=== PATIENT | female | born 1965 | race African-American/Black ===

== ENCOUNTER 2022-10-29 22:08 | Inpatient (IN) | payer MEDICAID, OTHER ==
[~2022-10-29] VITALS: Ht 162.6 cm; Wt 94.9 kg
[2022-10-29 23:13] LABS: BASOPHILS % (AUTO) 0.9 % (0.0-2.0); EOSINOPHILS % (AUTO) 2.9 % (1.0-6.0); HEMATOCRIT 38.8 % (36-46); HEMOGLOBIN 13.2 g/dL (12.0-16.0); LYMPHOCYTES # (AUTO) 4.7 K/uL (1.0-4.8); MEAN CORPUSCULAR HEMOGLOBIN 31.2 pg (26.0-34.0); MEAN CORPUSCULAR HGB CONC 33.9 G/dL (31.0-37.0); MEAN CORPUSCULAR VOLUME 92 fL (80-100); MONOCYTES # (AUTO) 0.5 K/uL (0.1-1.0); MONOCYTES % (AUTO) 6.6 % (2.0-9.0); NEUTROPHILS # (AUTO) 1.9 K/uL (1.8-7.7); NEUTROPHILS % (AUTO) 25.6 % (40.0-70.0); PLATELET COUNT (AUTO) 224 K/uL (150-450); RED BLOOD CELL COUNT(AUTO) 4.21 MIL/uL (4.00-5.20); RED CELL DISTRIBUTION WIDTH 16.1 % (11.5-14.5)
[2022-10-29 23:21] LABS: ANION GAP 14 mmol/L (8-16); CALCIUM, TOTAL 8.5 mg/dL (8.8-10.5); CARBON DIOXIDE 25 mmol/L (22-29); CHLORIDE 105 mmol/L (98-107); CREATININE 0.79 mg/dL (0.60-1.30); GLOMERULAR FILTR. RATE CALC > 60 mL/min (>60); GLUCOSE,RANDOM 103 mg/dL (70-110); POTASSIUM 3.9 mmol/L (3.5-5.1); SODIUM SERUM 144 mmol/L (136-145)
[2022-10-29] MEDS ORDERED: FAMO20 PO (23:25)
[2022-10-29] MEDS ORDERED: CETI-450 PO (23:25)
[2022-10-29] MEDS ORDERED: BUSP10TA23 PO (23:25)
[2022-10-29] MEDS ORDERED: FLUT1BLS15 IH (23:25)
[2022-10-29] MEDS ORDERED: CALC-1238 PO (23:25)
[2022-10-29] MEDS ORDERED: LURA20TA PO (23:25)
[2022-10-29] MEDS ORDERED: TRAZ-257 PO (23:25)
[2022-10-29 23:27] LABS: ALANINE AMINOTRANSFERASE 19 U/L (12-78); ALBUMIN 3.3 g/dL (3.4-5.0); ALKALINE PHOSPHATASE 76 U/L (46-116); ASPARTATE AMINOTRANSFERASE 31 U/L (15-37); BILIRUBIN,TOTAL 0.2 mg/dL (0.1-1.0); TOTAL PROTEIN, SERUM 6.9 g/dL (6.4-8.2)
[2022-10-29] MEDS ORDERED: ZOLPIDEM TARTRATE 10 MG TABLET PO PRN (23:30)
[2022-10-29] MEDS ORDERED: HALOPERIDOL 5 MG TABLET PO PRN (23:30)
[2022-10-29] MEDS ORDERED: LORazepam 2 MG TABLET PO PRN (23:30)
[2022-10-30 05:25] LABS: COVID AG,FIA SOURCE NASAL SWAB
[2022-10-30] MEDS ORDERED: MAGNESIUM SULFATE 2 GM, MVI, ADULT NO.1 WITH VIT K 10 ML, THIAMINE 100 MG, FOLIC ACID 1... IV ONE ×5 (09:00)
[2022-10-30] MEDS ORDERED: LORazepam 2 MG/ML VIAL IVP ONE (09:00)
[2022-10-30] MEDS ORDERED: HALOPERIDOL 5 MG TABLET PO PRN (21:15)
[2022-10-30] MEDS ORDERED: ZOLPIDEM TARTRATE 10 MG TABLET PO PRN (21:15)
[2022-10-30] MEDS: LORazepam 2 MG TABLET PO PRN (21:28)
[2022-10-30 22:14] LABS: APPEARANCE,URINE CLEAR (CLEAR); BILIRUBIN,URINE NEGATIVE (NEGATIVE); GLUCOSE, URINE (UA) NEGATIVE (NEGATIVE); KETONES,URINE NEGATIVE (NEGATIVE); LEUKOCYTE ESTERASE ,URINE NEGATIVE (NEGATIVE); NITRATE,URINE NEGATIVE (NEGATIVE); OCCULT BLOOD,URINE NEGATIVE (NEGATIVE); PH,URINE 7.5 (5.0-8.0); PROTEIN,URINE NEGATIVE (NEGATIVE); SPECIFIC GRAVITIY, URINE 1.008 (1.003-1.030); UROBILINOGEN,URINE <=1.0 mg/dL (<=1.0)
[2022-10-30 22:21] LABS: AMPHET/METH SCREEN,URINE NEGATIVE (NEGATIVE); BARBITURATE SCREEN, URINE NEGATIVE (NEGATIVE); BENZODIAZEPINES SCREEN,URINE NEGATIVE (NEGATIVE); CANNABINOID SCREEN,URINE NEGATIVE (NEGATIVE); COCAINE SCREEN,URINE NEGATIVE (NEGATIVE); METHADONE SCREEN, URINE NEGATIVE (NEGATIVE); OPIATE SCREEN,URINE NEGATIVE (NEGATIVE); PHENCYCLIDINE SCREEN,URINE NEGATIVE (NEGATIVE)
[2022-10-30 22:29] VITALS: BP 148/80
[2022-10-30 22:51] LABS: BACTERIA,URINE None Seen /HPF (None Seen); RBC,URINE None Seen /HPF (0-2); WBC,URINE 0-2 /HPF (0-5)
[2022-10-31] MEDS ORDERED: FAMOTIDINE 20 MG TABLET PO PRN (05:30)
[2022-10-31] MEDS: LORazepam 2 MG TABLET PO PRN ×2 (06:53→11:17)
[2022-10-31 08:33] VITALS: BP 119/71
[2022-10-31] MEDS: FLUTICASONE PROPIONATE 50 MCG/SPRAY 16 GM NASAL SPRAY NASAL SCH (09:00)
[2022-10-31] MEDS ORDERED: FLUTICASONE FUROATE 200 MCG/INH INHALER [14] IH SCH (09:00)
[2022-10-31] MEDS: UMECLIDINIUM IH SCH (10:25)
[2022-10-31] MEDS: IBUPROFEN 800 MG TABLET PO SCH ×3 (10:25→17:56)
[2022-10-31] MEDS: VILANTEROL IH SCH (10:25)
[2022-10-31] MEDS: CALCIUM [CALCIUM CARB 1250MG] 500 MG TABLET PO SCH (10:25)
[2022-10-31] MEDS: FLUTICASONE FUROATE IH SCH (10:25)
[2022-10-31] MEDS: CETIRIZINE HCL 10 MG TABLET PO SCH (10:26)
[2022-10-31] MEDS ORDERED: FLUT12HF3 PO (12:18)
[2022-10-31] MEDS ORDERED: CALC-462 PO (12:18)
[2022-10-31] MEDS ORDERED: LURA40TA4 PO (12:18)
[2022-10-31] MEDS: BusPIRone HCL 10 MG TABLET PO SCH (17:56)
[2022-10-31] MEDS ORDERED: LURASIDONE HCL 40 MG TABLET PO ONE (18:00)
[2022-10-31 20:04] VITALS: BP 149/62
[2022-10-31] MEDS: TraZODone HCL 50 MG TABLET PO SCH (20:11)
[2022-10-31] MEDS ORDERED: FLUTICASONE/VILANTEROL 200-25 MCG/INH INHALER [14] IH SCH (21:00)
[2022-10-31] MEDS ORDERED: LURASIDONE HCL 40 MG TABLET PO SCH (21:00)
[2022-11-01 08:00] VITALS: BP 108/55
[2022-11-01] MEDS: IBUPROFEN 800 MG TABLET PO SCH ×3 (08:58→17:00)
[2022-11-01] MEDS: BusPIRone HCL 10 MG TABLET PO SCH ×2 (08:58→17:26)
[2022-11-01] MEDS: FLUTICASONE PROPIONATE 50 MCG/SPRAY 16 GM NASAL SPRAY NASAL SCH (09:00)
[2022-11-01] MEDS: CALCIUM [CALCIUM CARB 1250MG] 500 MG TABLET PO SCH (09:00)
[2022-11-01] MEDS: CETIRIZINE HCL 10 MG TABLET PO SCH (09:01)
[2022-11-01] MEDS: VILANTEROL IH SCH (11:15)
[2022-11-01] MEDS: FLUTICASONE FUROATE IH SCH (11:15)
[2022-11-01] MEDS: UMECLIDINIUM IH SCH (11:15)
[2022-11-01] MEDS ORDERED: LURASIDONE HCL 40 MG TABLET PO SCH (17:30)
[2022-11-01 20:33] VITALS: BP 149/84
[2022-11-01] MEDS: TraZODone HCL 50 MG TABLET PO SCH (20:40)
[2022-11-02] MEDS: VILANTEROL IH SCH (08:29)
[2022-11-02] MEDS: BusPIRone HCL 10 MG TABLET PO SCH (08:29)
[2022-11-02] MEDS: FLUTICASONE FUROATE IH SCH (08:29)
[2022-11-02] MEDS: CALCIUM [CALCIUM CARB 1250MG] 500 MG TABLET PO SCH (08:29)
[2022-11-02] MEDS: UMECLIDINIUM IH SCH (08:29)
[2022-11-02] MEDS: FLUTICASONE PROPIONATE 50 MCG/SPRAY 16 GM NASAL SPRAY NASAL SCH (08:30)
[2022-11-02] MEDS: IBUPROFEN 800 MG TABLET PO SCH ×2 (08:30→11:29)
[2022-11-02] MEDS: CETIRIZINE HCL 10 MG TABLET PO SCH (08:30)
[2022-11-02 09:16] VITALS: BP 123/76
[2022-11-02] MEDS ORDERED: TRAZ-252 PO (09:54)
[2022-11-02] MEDS ORDERED: BUSP10TA23 PO (09:54)
[2022-11-02] MEDS ORDERED: LURA40TA4 PO (09:54)
[2022-11-02] MEDS ORDERED: FLUT16SP NASAL (10:36)
[2022-11-02] MEDS ORDERED: IBUP-1493 PO (10:36)
== END 2022-11-02 13:18 | disposition home or self-care (01) | DRG 750 ==
LOC: EMS 23:43 → 6N 10-30 14:06 → UNDOADMIN 10-30 14:06 → 3EI 10-30 17:24
PROVIDERS: ADMIT Psychiatry & Neurology Psychiatry; ATTEND Psychiatry & Neurology Psychiatry
DX: F25.9 Schizoaffective disorder, unspecified (principal); R45.851 Suicidal ideations; K70.30 Alcoholic cirrhosis of liver without ascites; F10.139 Alcohol abuse with withdrawal, unspecified; J45.909 Unspecified asthma, uncomplicated; Z20.822 Contact with and (suspected) exposure to COVID-19; F43.10 Post-traumatic stress disorder, unspecified; Z79.899 Other long term (current) drug therapy
CPT/HCPCS: 71045; 80053; 80307; 81001; 83690; 85025; 93005; 99285; G0480; J2060; J3411; J3475; J3490; J7030; Q9967; 36415-L1; 36415-TC

== ENCOUNTER 2023-03-15 21:11 | Emergency (ER) | payer MEDICAID, OTHER ==
[~2023-03-15] VITALS: Ht 162.6 cm; Wt 95.9 kg
[~2023-03-15 21:11] MED LIST: BUSP10TA23 PO; CALC-462 PO; CETI-450 PO; FLUT16SP NASAL; FLUT1BLS15 IH; IBUP-1493 PO; LURA40TA4 PO; TRAZ-252 PO
[2023-03-15 21:46] VITALS: TEMP 98.4
[2023-03-15] MEDS ORDERED: LURASIDONE HCL 20 MG TABLET PO ONE (22:00)
[2023-03-15] MEDS ORDERED: BusPIRone HCL 10 MG TABLET PO ONE (22:00)
[2023-03-15] MEDS ORDERED: LORazepam 2 MG/ML VIAL IM ONE (22:15)
[2023-03-15 22:47] LABS: BASOPHILS % (AUTO) 1.5 % (0.0-2.0); HEMATOCRIT 41.1 % (36-46); HEMOGLOBIN 13.8 g/dL (12.0-16.0); LYMPHOCYTES # (AUTO) 3.8 K/uL (1.0-4.8); LYMPHOCYTES % (AUTO) 59.4 % (22.0-44.0); MEAN CORPUSCULAR HEMOGLOBIN 32.3 pg (26.0-34.0); MEAN CORPUSCULAR HGB CONC 33.5 G/dL (31.0-37.0); MEAN CORPUSCULAR VOLUME 96 fL (80-100); MONOCYTES # (AUTO) 0.5 K/uL (0.1-1.0); MONOCYTES % (AUTO) 7.3 % (2.0-9.0); NEUTROPHILS # (AUTO) 1.6 K/uL (1.8-7.7); NEUTROPHILS % (AUTO) 25.8 % (40.0-70.0); PLATELET COUNT (AUTO) 234 K/uL (150-450); RED BLOOD CELL COUNT(AUTO) 4.27 MIL/uL (4.00-5.20); RED CELL DISTRIBUTION WIDTH 15.7 % (11.5-14.5); WHITE BLOOD COUNT (AUTO) 6.4 K/uL (4.5-11.0)
[2023-03-15 22:56] LABS: ANION GAP 10 mmol/L (8-16); CALCIUM, TOTAL 7.9 mg/dL (8.8-10.5); CARBON DIOXIDE 27 mmol/L (22-29); CHLORIDE 107 mmol/L (98-107); CREATININE 0.74 mg/dL (0.60-1.30); GLOMERULAR FILTR. RATE CALC > 60 mL/min (>60); GLUCOSE,RANDOM 95 mg/dL (70-110); POTASSIUM 3.9 mmol/L (3.5-5.1); SODIUM SERUM 144 mmol/L (136-145); UREA NITROGEN, BLOOD 7 mg/dL (7-18)
[2023-03-15 23:02] LABS: ALANINE AMINOTRANSFERASE 23 U/L (12-78); ALBUMIN 2.8 g/dL (3.4-5.0); ALKALINE PHOSPHATASE 76 U/L (46-116); ASPARTATE AMINOTRANSFERASE 30 U/L (15-37); BILIRUBIN,TOTAL 0.2 mg/dL (0.1-1.0); LIPASE 66 U/L (16-77); TOTAL PROTEIN, SERUM 6.1 g/dL (6.4-8.2)
[2023-03-15 23:20] LABS: ALCOHOL, BLOOD (SERUM) 248 mg/dL (0-10)
[2023-03-16 01:42] VITALS: BP 113/76; PULSE 61; RESP 14
== END 2023-03-16 01:44 | disposition home or self-care (01) ==
LOC: EMS 21:13
DX: F25.9 Schizoaffective disorder, unspecified (principal); R45.851 Suicidal ideations; F10.129 Alcohol abuse with intoxication, unspecified; J45.909 Unspecified asthma, uncomplicated; F31.9 Bipolar disorder, unspecified; Z87.891 Personal history of nicotine dependence; Z98.51 Tubal ligation status; Z88.0 Allergy status to penicillin
CPT/HCPCS: 99284; 80053; 83690; 85025; 36415; 96372; G0480; J2060; Q9967

== ENCOUNTER 2023-09-19 17:40 | Inpatient (IN) | payer MEDICAID, OTHER ==
[~2023-09-19] VITALS: Ht 162.6 cm; Wt 86.6 kg
[2023-09-19 19:01] LABS: BASOPHILS % (AUTO) 1.1 % (0.0-2.0); EOSINOPHILS % (AUTO) 4.1 % (1.0-6.0); HEMATOCRIT 46.9 % (36-46); HEMOGLOBIN 16.3 g/dL (12.0-16.0); LYMPHOCYTES # (AUTO) 6.3 K/uL (1.0-4.8); LYMPHOCYTES % (AUTO) 59.6 % (22.0-44.0); MEAN CORPUSCULAR HEMOGLOBIN 33.5 pg (26.0-34.0); MEAN CORPUSCULAR HGB CONC 34.7 G/dL (31.0-37.0); MEAN CORPUSCULAR VOLUME 97 fL (80-100); MONOCYTES # (AUTO) 0.6 K/uL (0.1-1.0); MONOCYTES % (AUTO) 5.4 % (2.0-9.0); NEUTROPHILS # (AUTO) 3.1 K/uL (1.8-7.7); NEUTROPHILS % (AUTO) 29.8 % (40.0-70.0); PLATELET COUNT (AUTO) 232 K/uL (150-450); RED BLOOD CELL COUNT(AUTO) 4.86 MIL/uL (4.00-5.20); RED CELL DISTRIBUTION WIDTH 16.3 % (11.5-14.5); WHITE BLOOD COUNT (AUTO) 10.5 K/uL (4.5-11.0)
[2023-09-19 19:19] LABS: ALCOHOL, BLOOD (SERUM) 298 mg/dL (0-10)
[2023-09-19 19:25] LABS: ANION GAP 17 mmol/L (8-16); CALCIUM, TOTAL 8.6 mg/dL (8.8-10.5); CARBON DIOXIDE 21 mmol/L (22-29); CHLORIDE 99 mmol/L (98-107); CREATININE 0.75 mg/dL (0.60-1.30); GLOMERULAR FILTR. RATE CALC > 60 mL/min (>60); GLUCOSE,RANDOM 103 mg/dL (70-110); POTASSIUM 3.7 mmol/L (3.5-5.1); SODIUM SERUM 137 mmol/L (136-145); UREA NITROGEN, BLOOD 8 mg/dL (7-18)
[2023-09-19 19:29] LABS: ALANINE AMINOTRANSFERASE 21 U/L (12-78); ALBUMIN 3.6 g/dL (3.4-5.0); ALKALINE PHOSPHATASE 90 U/L (46-116); ASPARTATE AMINOTRANSFERASE 32 U/L (15-37); BILIRUBIN,TOTAL 0.2 mg/dL (0.1-1.0); TOTAL PROTEIN, SERUM 8.2 g/dL (6.4-8.2)
[2023-09-19 19:42] LABS: COVID AG,FIA SOURCE NASAL SWAB
[2023-09-19 20:08] LABS: SARS-COV2 (COVID) ANTIGEN,FIA Negative (Negative)
[2023-09-19] MEDS: ZOLPIDEM TARTRATE 10 MG TABLET PO PRN (23:20)
[2023-09-19] MEDS: HALOPERIDOL 5 MG TABLET PO PRN (23:20)
[2023-09-19] MEDS: LORazepam 2 MG TABLET PO PRN (23:20)
[2023-09-20] VITALS (8 sets, daily range): BP systolic 124–144; BP diastolic 75–92; PULSE 76–116; RESP 17–18; TEMP 97.2–98.7; O2SAT 95–98
[2023-09-20] MEDS ORDERED: PNEUMOCOCCAL VACCINE POLYVALENT 0.5 ML SYRINGE [PPSV23] IM. ONE (04:45)
[2023-09-20] MEDS ORDERED: CloNIDine HCL 0.1 MG TABLET PO PRN (07:00)
[2023-09-20] MEDS ORDERED: GuaiFENesin/D-METHORPHAN [SUGAR-FREE] 200-20MG/10 ML SYRUP UDCUP PO PRN (07:00)
[2023-09-20] MEDS ORDERED: ALBUTEROL SULFATE HFA 90 MCG/PUFF 8 GM INHALER IH PRN (07:00)
[2023-09-20] MEDS ORDERED: NICOTINE 14 MG/24 HOUR PATCH TD PRN (07:00)
[2023-09-20] MEDS ORDERED: PETROLATUM,WHITE 28 GM JELLY TP PRN (07:00)
[2023-09-20] MEDS ORDERED: ONDANSETRON HCL 4 MG TABLET PO PRN (07:00)
[2023-09-20] MEDS ORDERED: MAGNESIUM HYDROXIDE SUSPENSION 30 ML UDCUP PO PRN (07:00)
[2023-09-20] MEDS ORDERED: IBUPROFEN 400 MG TABLET PO PRN (07:00)
[2023-09-20] MEDS ORDERED: LOPERAMIDE HCL 2 MG CAPSULE PO PRN (07:00)
[2023-09-20] MEDS ORDERED: MAG HYDROX/ALUMINUM HYD/SIMETH ES 30 ML SUSPENSION UDCUP PO PRN (07:00)
[2023-09-20] MEDS: FLUTICASONE/VILANTEROL 200-25 MCG/INH INHALER [14] IH SCH (09:32)
[2023-09-20 10:45] LABS: APPEARANCE,URINE HAZY (CLEAR); BILIRUBIN,URINE NEGATIVE (NEGATIVE); COLOR,URINE LIGHT YELLOW (YELLOW); GLUCOSE, URINE (UA) NEGATIVE (NEGATIVE); KETONES,URINE NEGATIVE (NEGATIVE); LEUKOCYTE ESTERASE ,URINE LARGE (NEGATIVE); NITRATE,URINE NEGATIVE (NEGATIVE); OCCULT BLOOD,URINE NEGATIVE (NEGATIVE); PROTEIN,URINE NEGATIVE (NEGATIVE); UROBILINOGEN,URINE <=1.0 mg/dL (<=1.0)
[2023-09-20] MEDS ORDERED: LORazepam 2 MG TABLET PO PRN (10:45)
[2023-09-20 10:53] LABS: ALCOHOL, URINE DRUG SCREEN POSITIVE (NEGATIVE); AMPHET/METH SCREEN,URINE NEGATIVE (NEGATIVE); BARBITURATE SCREEN, URINE NEGATIVE (NEGATIVE); BENZODIAZEPINES SCREEN,URINE NEGATIVE (NEGATIVE); CANNABINOID SCREEN,URINE NEGATIVE (NEGATIVE); COCAINE SCREEN,URINE NEGATIVE (NEGATIVE); METHADONE SCREEN, URINE NEGATIVE (NEGATIVE); OPIATE SCREEN,URINE NEGATIVE (NEGATIVE); PHENCYCLIDINE SCREEN,URINE NEGATIVE (NEGATIVE)
[2023-09-20 11:06] LABS: BACTERIA,URINE Few /HPF (None Seen); RBC,URINE None Seen /HPF (0-2); SQUAMOUS EPITHELIAL CELL,UR Few /LPF (None Seen)
[2023-09-20] MEDS: FOLIC ACID 1 MG TABLET PO SCH (12:55)
[2023-09-20] MEDS: BusPIRone HCL 10 MG TABLET PO SCH (12:55)
[2023-09-20] MEDS: THIAMINE 100 MG TABLET PO SCH (12:55)
[2023-09-20] MEDS: MULTIVITAMINS WITH MINERALS, THERAPEUTIC TABLET PO SCH (12:55)
[2023-09-20] MEDS: CYANOCOBALAMIN 1,000 MCG/ML VIAL IM ONE (13:25)
[2023-09-20] MEDS: CETIRIZINE HCL 10 MG TABLET PO SCH (15:27)
[2023-09-20] MEDS: CALCIUM OYSTER SHELL 250 MG-VIT D3 125 UNITS[3.125MCG] TABLET PO SCH (15:27)
[2023-09-20] MEDS: LURASIDONE HCL 40 MG TABLET PO SCH (16:52)
[2023-09-20] MEDS: TraZODone HCL 50 MG TABLET PO SCH (20:52)
[2023-09-21 03:13] VITALS: BP 133/89; PULSE 80; RESP 18; TEMP 98
[2023-09-21] MEDS ORDERED: LORazepam 2 MG TABLET PO PRN (07:00)
[2023-09-21 08:40] LABS: HEMOGLOBIN A1C 5.4 % (3.8-5.6)
[2023-09-21 08:56] LABS: CHOL/HDL RATIO 2.9 (3.9-5.7); THYROID STIMULATING HORMONE 0.99 uIU/mL (0.36-3.74)
[2023-09-21 09:21] VITALS: BP 127/67; PULSE 92; RESP 18; TEMP 97.6; O2SAT 100
[2023-09-21] MEDS: LORazepam 2 MG TABLET PO SCH (09:25)
[2023-09-21 09:32] VITALS: BP 127/67; PULSE 92; RESP 18; TEMP 97.6; O2SAT 100
[2023-09-21 12:00] VITALS: BP 131/87; PULSE 100; RESP 18; TEMP 97.8; O2SAT 100
[2023-09-21 16:00] VITALS: BP 149/96; PULSE 91; RESP 1; TEMP 97.6; O2SAT 99
[2023-09-21 20:00] VITALS: BP 140/81; PULSE 100; RESP 18; TEMP 98; O2SAT 98
[2023-09-21] MEDS: ACETAMINOPHEN 325 MG TABLET PO PRN (20:09)
[2023-09-21] MEDS: DOCUSATE SODIUM 100 MG CAPSULE PO PRN (20:18)
[2023-09-22 08:16] VITALS: BP 137/89; PULSE 98; RESP 19; TEMP 97.6; O2SAT 95
[2023-09-22 20:56] VITALS: BP 137/78; PULSE 97; RESP 17; TEMP 96.7; O2SAT 95
[2023-09-23] MEDS ORDERED: LORazepam 1 MG TABLET PO PRN (07:00)
[2023-09-23 08:24] VITALS: BP 128/82; PULSE 100; RESP 18; TEMP 97.2; O2SAT 96
[2023-09-23] MEDS: LORazepam 1 MG TABLET PO SCH (08:49)
[2023-09-23] MEDS ORDERED: BUSP10TA23 PO (10:52)
[2023-09-23] MEDS ORDERED: CALC-1275 PO (10:52)
[2023-09-23] MEDS ORDERED: TRAZ-252 PO (10:52)
[2023-09-23] MEDS ORDERED: LURA40TA4 PO (10:52)
[2023-09-23] MEDS ORDERED: CETI-450 PO (10:52)
[2023-09-24] MEDS ORDERED: LORazepam 1 MG TABLET PO PRN (07:00)
== END 2023-09-23 13:45 | disposition home or self-care (01) | DRG 750 ==
LOC: EMS 17:52 → B2S 09-20 00:46
PROVIDERS: ADMIT Psychiatry & Neurology Psychiatry; ATTEND Psychiatry & Neurology Psychiatry
PROC: GZHZZZZ Group Psychotherapy (ICD-10-PCS; principal; 2023-09-20)
DX: F25.0 Schizoaffective disorder, bipolar type (principal); R45.851 Suicidal ideations; K70.30 Alcoholic cirrhosis of liver without ascites; J45.909 Unspecified asthma, uncomplicated; Z20.822 Contact with and (suspected) exposure to COVID-19; F43.10 Post-traumatic stress disorder, unspecified; G47.00 Insomnia, unspecified; F10.239 Alcohol dependence with withdrawal, unspecified; Z88.0 Allergy status to penicillin; Z88.8 Allergy status to other drugs, medicaments and biological substances; Z79.899 Other long term (current) drug therapy; Z98.51 Tubal ligation status; Z87.891 Personal history of nicotine dependence
CPT/HCPCS: 80053; 80061; 80307; 81001; 83036; 84443; 84703; 85025; 87086; 87186; 99285; G0480; J3420; J3535; Q9967

== ENCOUNTER 2023-11-12 16:05 | Inpatient (IN) | payer MEDICAID, OTHER ==
[~2023-11-12] VITALS: Ht 162.6 cm; Wt 86.8 kg
[~2023-11-12 16:05] MED LIST changes: +ARIP10TA38 PO; +CALC-1275 PO; -CALC-462 PO; -FLUT16SP NASAL; -FLUT1BLS15 IH; -IBUP-1493 PO; -LURA40TA4 PO
[2023-11-12 19:29] LABS: BASOPHILS % (AUTO) 0.8 % (0.0-2.0); HEMATOCRIT 41.8 % (36-46); HEMOGLOBIN 14.2 g/dL (12.0-16.0); LYMPHOCYTES # (AUTO) 4.2 K/uL (1.0-4.8); LYMPHOCYTES % (AUTO) 55.9 % (22.0-44.0); MEAN CORPUSCULAR HEMOGLOBIN 33.4 pg (26.0-34.0); MEAN CORPUSCULAR HGB CONC 33.9 G/dL (31.0-37.0); MEAN CORPUSCULAR VOLUME 98 fL (80-100); MONOCYTES # (AUTO) 0.4 K/uL (0.1-1.0); MONOCYTES % (AUTO) 5.1 % (2.0-9.0); NEUTROPHILS # (AUTO) 2.5 K/uL (1.8-7.7); NEUTROPHILS % (AUTO) 33.2 % (40.0-70.0); PLATELET COUNT (AUTO) 207 K/uL (150-450); RED BLOOD CELL COUNT(AUTO) 4.25 MIL/uL (4.00-5.20); RED CELL DISTRIBUTION WIDTH 16.5 % (11.5-14.5); WHITE BLOOD COUNT (AUTO) 7.6 K/uL (4.5-11.0)
[2023-11-12 19:37] LABS: ANION GAP 13 mmol/L (8-16); CALCIUM, TOTAL 8.9 mg/dL (8.8-10.5); CARBON DIOXIDE 24 mmol/L (22-29); CHLORIDE 102 mmol/L (98-107); CREATININE 0.71 mg/dL (0.60-1.30); GLOMERULAR FILTR. RATE CALC > 60 mL/min (>60); GLUCOSE,RANDOM 80 mg/dL (70-110); POTASSIUM 3.3 mmol/L (3.5-5.1); SODIUM SERUM 139 mmol/L (136-145); UREA NITROGEN, BLOOD 5 mg/dL (7-18)
[2023-11-12 19:39] LABS: ALCOHOL, BLOOD (SERUM) 205 mg/dL (0-10)
[2023-11-12 19:44] LABS: ALANINE AMINOTRANSFERASE 28 U/L (12-78); ALBUMIN 3.2 g/dL (3.4-5.0); ALKALINE PHOSPHATASE 97 U/L (46-116); ASPARTATE AMINOTRANSFERASE 35 U/L (15-37); BILIRUBIN,TOTAL 0.6 mg/dL (0.1-1.0); TOTAL PROTEIN, SERUM 7.4 g/dL (6.4-8.2)
[2023-11-12 21:06] LABS: COVID AG,FIA SOURCE NPH
[2023-11-12 21:26] LABS: SARS-COV2 (COVID) ANTIGEN,FIA Negative (Negative)
[2023-11-12 21:30] LABS: APPEARANCE,URINE HAZY (CLEAR); BILIRUBIN,URINE NEGATIVE (NEGATIVE); COLOR,URINE LIGHT YELLOW (YELLOW); GLUCOSE, URINE (UA) NEGATIVE (NEGATIVE); KETONES,URINE NEGATIVE (NEGATIVE); LEUKOCYTE ESTERASE ,URINE SMALL (NEGATIVE); NITRATE,URINE POSITIVE (NEGATIVE); OCCULT BLOOD,URINE NEGATIVE (NEGATIVE); PH,URINE 5.5 (5.0-8.0); PH,URINE DRUG SCREEN 5.5 (5.0-8.0); PROTEIN,URINE NEGATIVE (NEGATIVE); SPECIFIC GRAVITIY, URINE 1.009 (1.003-1.030); UROBILINOGEN,URINE <=1.0 mg/dL (<=1.0)
[2023-11-12] MEDS: LORazepam 2 MG/ML VIAL IM ONE (21:33)
[2023-11-12] MEDS: POTASSIUM CHLORIDE 20 MEQ ER TABLET PO ONE (21:33)
[2023-11-12 21:36] LABS: ALCOHOL, URINE DRUG SCREEN POSITIVE (NEGATIVE); AMPHET/METH SCREEN,URINE POSITIVE (NEGATIVE); BARBITURATE SCREEN, URINE NEGATIVE (NEGATIVE); BENZODIAZEPINES SCREEN,URINE POSITIVE (NEGATIVE); CANNABINOID SCREEN,URINE NEGATIVE (NEGATIVE); COCAINE SCREEN,URINE NEGATIVE (NEGATIVE); METHADONE SCREEN, URINE NEGATIVE (NEGATIVE); OPIATE SCREEN,URINE NEGATIVE (NEGATIVE); PHENCYCLIDINE SCREEN,URINE NEGATIVE (NEGATIVE)
[2023-11-12 22:30] LABS: BACTERIA,URINE Moderate /HPF (None Seen); RBC,URINE None Seen /HPF (0-2); SQUAMOUS EPITHELIAL CELL,UR Few /LPF (None Seen)
[2023-11-12] MEDS ORDERED: HALOPERIDOL 5 MG TABLET PO PRN (22:30)
[2023-11-12] MEDS ORDERED: ZOLPIDEM TARTRATE 10 MG TABLET PO PRN (22:30)
[2023-11-13] VITALS (14 sets, daily range): BP systolic 106–167; BP diastolic 61–87; PULSE 79–106; RESP 18; TEMP 97–98.8; O2SAT 93–98
[2023-11-13] MEDS: LORazepam 2 MG TABLET PO PRN (03:53)
[2023-11-13] MEDS: ARIPiprazole 10 MG TABLET PO SCH (13:36)
[2023-11-13] MEDS: ChlordiazePOXIDE HCL 25 MG CAPSULE PO PRN (13:40)
[2023-11-13] MEDS: BusPIRone HCL 10 MG TABLET PO SCH (16:20)
[2023-11-13] MEDS: TraZODone HCL 50 MG TABLET PO SCH (20:52)
[2023-11-13] MEDS ORDERED: MAG HYDROX/ALUMINUM HYD/SIMETH ES 30 ML SUSPENSION UDCUP PO PRN (22:45)
[2023-11-13] MEDS ORDERED: ALBUTEROL SULFATE HFA 90 MCG/PUFF 8 GM INHALER IH PRN (22:45)
[2023-11-13] MEDS ORDERED: GuaiFENesin/D-METHORPHAN [SUGAR-FREE] 200-20MG/10 ML SYRUP UDCUP PO PRN (22:45)
[2023-11-13] MEDS ORDERED: MAGNESIUM HYDROXIDE SUSPENSION 30 ML UDCUP PO PRN (22:45)
[2023-11-13] MEDS ORDERED: CloNIDine HCL 0.1 MG TABLET PO PRN (22:45)
[2023-11-13] MEDS ORDERED: DOCUSATE SODIUM 100 MG CAPSULE PO PRN (22:45)
[2023-11-13] MEDS ORDERED: NICOTINE 14 MG/24 HOUR PATCH TD PRN (22:45)
[2023-11-13] MEDS ORDERED: PETROLATUM,WHITE 28 GM JELLY TP PRN (22:45)
[2023-11-13] MEDS ORDERED: LOPERAMIDE HCL 2 MG CAPSULE PO PRN (22:45)
[2023-11-13] MEDS: ACETAMINOPHEN 325 MG TABLET PO PRN (22:52)
[2023-11-14] VITALS (10 sets, daily range): BP systolic 102–126; BP diastolic 58–83; PULSE 18–98; RESP 16–19; TEMP 97.4–98.3; O2SAT 96–100
[2023-11-14] MEDS ORDERED: ChlordiazePOXIDE HCL 25 MG CAPSULE PO PRN (07:00)
[2023-11-14] MEDS: ChlordiazePOXIDE HCL 25 MG CAPSULE PO SCH (08:25)
[2023-11-14 08:31] LABS: BASOPHILS % (AUTO) 0.7 % (0.0-2.0); HEMOGLOBIN 14.3 g/dL (12.0-16.0); LYMPHOCYTES % (AUTO) 36.1 % (22.0-44.0); MEAN CORPUSCULAR HEMOGLOBIN 33.6 pg (26.0-34.0); MEAN CORPUSCULAR VOLUME 99 fL (80-100); MONOCYTES # (AUTO) 0.3 K/uL (0.1-1.0); MONOCYTES % (AUTO) 3.6 % (2.0-9.0); NEUTROPHILS # (AUTO) 4.5 K/uL (1.8-7.7); NEUTROPHILS % (AUTO) 53.6 % (40.0-70.0); PLATELET COUNT (AUTO) 167 K/uL (150-450); RED BLOOD CELL COUNT(AUTO) 4.26 MIL/uL (4.00-5.20); RED CELL DISTRIBUTION WIDTH 16.2 % (11.5-14.5); WHITE BLOOD COUNT (AUTO) 8.4 K/uL (4.5-11.0)
[2023-11-14 08:43] LABS: ALANINE AMINOTRANSFERASE 22 U/L (12-78); ALBUMIN 2.9 g/dL (3.4-5.0); ALKALINE PHOSPHATASE 100 U/L (46-116); ANION GAP 11 mmol/L (8-16); ASPARTATE AMINOTRANSFERASE 26 U/L (15-37); BILIRUBIN,TOTAL 1.2 mg/dL (0.1-1.0); CALCIUM, TOTAL 9.1 mg/dL (8.8-10.5); CARBON DIOXIDE 26 mmol/L (22-29); CHLORIDE 100 mmol/L (98-107); CREATININE 0.91 mg/dL (0.60-1.30); GLOMERULAR FILTR. RATE CALC > 60 mL/min (>60); GLUCOSE,RANDOM 164 mg/dL (70-110); POTASSIUM 3.4 mmol/L (3.5-5.1); SODIUM SERUM 137 mmol/L (136-145); THYROID STIMULATING HORMONE 0.64 uIU/mL (0.36-3.74); TOTAL PROTEIN, SERUM 7.1 g/dL (6.4-8.2); UREA NITROGEN, BLOOD 8 mg/dL (7-18)
[2023-11-14 08:49] LABS: HEMOGLOBIN A1C 5.2 % (3.8-5.6)
[2023-11-14 08:58] LABS: CHOL/HDL RATIO 2.1 (3.9-5.7); CHOLESTEROL 159 mg/dL (131-200); HDL CHOLESTEROL 77 mg/dL (40-60); LDL CHOL (CALC.) 64 mg/dL (0-130); TRIGLYCERIDES 90 mg/dL (15-150)
[2023-11-14] MEDS: MUPIROCIN CALCIUM 2% 22 GM OINTMENT NASAL SCH (08:59)
[2023-11-14] MEDS: POTASSIUM CHLORIDE 20 MEQ ER TABLET PO ONE (17:11)
[2023-11-14] MEDS: ONDANSETRON HCL 4 MG TABLET PO PRN (22:23)
[2023-11-15 09:58] VITALS: BP 120/72; PULSE 68; RESP 18; TEMP 97.1
[2023-11-15 10:02] VITALS: BP 120/72; PULSE 68; RESP 18; TEMP 97.1
[2023-11-15 20:17] VITALS: BP 106/66; PULSE 76; RESP 18; TEMP 97.4; O2SAT 99
[2023-11-15] MEDS: IBUPROFEN 400 MG TABLET PO PRN (20:20)
[2023-11-15 20:22] VITALS: BP 106/66; PULSE 76; RESP 18; TEMP 97.4; O2SAT 99
[2023-11-15 21:20] VITALS: RESP 18
[2023-11-16] MEDS ORDERED: ChlordiazePOXIDE HCL 10 MG CAPSULE PO PRN (07:00)
[2023-11-16] MEDS ORDERED: ChlordiazePOXIDE HCL 10 MG CAPSULE PO SCH (09:00)
[2023-11-17] MEDS ORDERED: ChlordiazePOXIDE HCL 10 MG CAPSULE PO PRN (07:00)
== END 2023-11-16 04:50 | disposition left against medical advice (07) | DRG 750 ==
LOC: EMS 16:08 → 3EI 23:35
PROVIDERS: ADMIT Psychiatry & Neurology Psychiatry; ATTEND Psychiatry & Neurology Psychiatry
PROC: GZ52ZZZ Individual Psychotherapy, Cognitive (ICD-10-PCS; principal; 2023-11-14)
DX: F25.1 Schizoaffective disorder, depressive type (principal); R45.851 Suicidal ideations; M81.0 Age-related osteoporosis without current pathological fracture; K21.9 Gastro-esophageal reflux disease without esophagitis; Z20.822 Contact with and (suspected) exposure to COVID-19; J45.909 Unspecified asthma, uncomplicated; F43.10 Post-traumatic stress disorder, unspecified; F10.239 Alcohol dependence with withdrawal, unspecified; Y90.7 Blood alcohol level of 200-239 mg/100 ml; Z88.0 Allergy status to penicillin; Z53.29 Procedure and treatment not carried out because of patient's decision for other reasons
CPT/HCPCS: 72100; 80053; 80061; 80307; 81001; 83036; 84443; 85025; 87081; 87086; 87186; 96372; 99285; G0480; J2060; Q0162

== ENCOUNTER 2023-12-11 15:04 | Inpatient (IN) | payer MEDICAID, OTHER ==
[~2023-12-11] VITALS: Ht 170.2 cm; Wt 86.0 kg
[2023-12-11 16:21] LABS: BASOPHILS % (AUTO) 0.6 % (0.0-2.0); EOSINOPHILS % (AUTO) 3.6 % (1.0-6.0); HEMATOCRIT 41.6 % (36-46); HEMOGLOBIN 13.7 g/dL (12.0-16.0); LYMPHOCYTES # (AUTO) 3.7 K/uL (1.0-4.8); LYMPHOCYTES % (AUTO) 44.4 % (22.0-44.0); MEAN CORPUSCULAR HEMOGLOBIN 31.9 pg (26.0-34.0); MEAN CORPUSCULAR HGB CONC 32.9 G/dL (31.0-37.0); MEAN CORPUSCULAR VOLUME 97 fL (80-100); MONOCYTES # (AUTO) 0.7 K/uL (0.1-1.0); MONOCYTES % (AUTO) 7.9 % (2.0-9.0); NEUTROPHILS # (AUTO) 3.7 K/uL (1.8-7.7); NEUTROPHILS % (AUTO) 43.5 % (40.0-70.0); PLATELET COUNT (AUTO) 223 K/uL (150-450); RED BLOOD CELL COUNT(AUTO) 4.29 MIL/uL (4.00-5.20); RED CELL DISTRIBUTION WIDTH 15.4 % (11.5-14.5); WHITE BLOOD COUNT (AUTO) 8.4 K/uL (4.5-11.0)
[2023-12-11 16:31] LABS: ANION GAP 11 mmol/L (8-16); CALCIUM, TOTAL 8.3 mg/dL (8.8-10.5); CARBON DIOXIDE 25 mmol/L (22-29); CHLORIDE 101 mmol/L (98-107); CREATININE 0.87 mg/dL (0.60-1.30); GLOMERULAR FILTR. RATE CALC > 60 mL/min (>60); GLUCOSE,RANDOM 121 mg/dL (70-110); POTASSIUM 3.4 mmol/L (3.5-5.1); SODIUM SERUM 137 mmol/L (136-145); UREA NITROGEN, BLOOD 7 mg/dL (7-18)
[2023-12-11 16:39] LABS: ALCOHOL, BLOOD (SERUM) 304 mg/dL (0-10)
[2023-12-11 16:40] LABS: TROPONIN I-HIGH SENSITIVITY 8 ng/L (<51)
[2023-12-11] MEDS: IBUPROFEN 600 MG TABLET PO ONE (18:26)
[2023-12-11 18:34] LABS: COVID AG,FIA SOURCE NASAL SWAB
[2023-12-11 18:57] LABS: SARS-COV2 (COVID) ANTIGEN,FIA Negative (Negative)
[2023-12-11] MEDS ORDERED: HALOPERIDOL 5 MG TABLET PO PRN (21:45)
[2023-12-11 22:57] LABS: APPEARANCE,URINE TURBID (CLEAR); BILIRUBIN,URINE NEGATIVE (NEGATIVE); COLOR,URINE YELLOW (YELLOW); GLUCOSE, URINE (UA) NEGATIVE (NEGATIVE); KETONES,URINE NEGATIVE (NEGATIVE); LEUKOCYTE ESTERASE ,URINE LARGE (NEGATIVE); NITRATE,URINE POSITIVE (NEGATIVE); OCCULT BLOOD,URINE SMALL (NEGATIVE); PH,URINE 5.5 (5.0-8.0); PROTEIN,URINE TRACE mg/dL (NEGATIVE); SPECIFIC GRAVITIY, URINE 1.007 (1.003-1.030); UROBILINOGEN,URINE <=1.0 mg/dL (<=1.0)
[2023-12-11 22:59] LABS: PH,URINE DRUG SCREEN 5.5 (5.0-8.0)
[2023-12-11 23:03] LABS: ALCOHOL, URINE DRUG SCREEN POSITIVE (NEGATIVE); AMPHET/METH SCREEN,URINE POSITIVE (NEGATIVE); BARBITURATE SCREEN, URINE NEGATIVE (NEGATIVE); BENZODIAZEPINES SCREEN,URINE NEGATIVE (NEGATIVE); CANNABINOID SCREEN,URINE NEGATIVE (NEGATIVE); COCAINE SCREEN,URINE NEGATIVE (NEGATIVE); METHADONE SCREEN, URINE NEGATIVE (NEGATIVE); OPIATE SCREEN,URINE NEGATIVE (NEGATIVE); PHENCYCLIDINE SCREEN,URINE NEGATIVE (NEGATIVE)
[2023-12-11 23:07] LABS: BACTERIA,URINE Many /HPF (None Seen); RBC,URINE 0-2 /HPF (0-2); SQUAMOUS EPITHELIAL CELL,UR Many /LPF (None Seen)
[2023-12-12] VITALS (9 sets, daily range): BP systolic 115–165; BP diastolic 71–96; PULSE 88–110; RESP 18–20; TEMP 97.5–98.4; O2SAT 96–99
[2023-12-12] MEDS: LORazepam 2 MG TABLET PO PRN ×2 (02:34→17:49)
[2023-12-12] MEDS: ALBUTEROL SULFATE HFA 90 MCG/PUFF 8 GM INHALER IH ONE (10:09)
[2023-12-12] MEDS: IBUPROFEN 600 MG TABLET PO ONE (10:23)
[2023-12-12] MEDS ORDERED: LOPERAMIDE HCL 2 MG CAPSULE PO PRN (14:15)
[2023-12-12] MEDS ORDERED: PROMETHAZINE HCL 25 MG TABLET PO PRN (14:15)
[2023-12-12] MEDS ORDERED: GuaiFENesin [SUGAR-FREE] 200 MG/10 ML SOLUTION UDCUP PO PRN (14:15)
[2023-12-12] MEDS: THIAMINE 100 MG TABLET PO SCH (16:04)
[2023-12-12] MEDS: CYANOCOBALAMIN 1,000 MCG/ML VIAL IM ONE (16:04)
[2023-12-12] MEDS: HydrOXYzine PAMOATE 50 MG CAPSULE PO PRN (21:25)
[2023-12-12] MEDS: ZOLPIDEM TARTRATE 10 MG TABLET PO PRN (21:25)
[2023-12-13] VITALS (10 sets, daily range): BP systolic 125–138; BP diastolic 68–79; PULSE 82–90; RESP 16–19; TEMP 97.4–98; O2SAT 97–98
[2023-12-13] MEDS: IBUPROFEN 600 MG TABLET PO ONE (00:52)
[2023-12-13] MEDS ORDERED: LORazepam 2 MG TABLET PO PRN (07:00)
[2023-12-13] MEDS ORDERED: LOPERAMIDE HCL 2 MG CAPSULE PO PRN (07:45)
[2023-12-13] MEDS ORDERED: ACETAMINOPHEN 325 MG TABLET PO PRN (07:45)
[2023-12-13] MEDS ORDERED: PETROLATUM,WHITE 28 GM JELLY TP PRN (07:45)
[2023-12-13] MEDS ORDERED: ALBUTEROL SULFATE HFA 90 MCG/PUFF 8 GM INHALER IH PRN (07:45)
[2023-12-13] MEDS ORDERED: NICOTINE 14 MG/24 HOUR PATCH TD PRN (07:45)
[2023-12-13] MEDS ORDERED: GuaiFENesin/D-METHORPHAN [SUGAR-FREE] 200-20MG/10 ML SYRUP UDCUP PO PRN (07:45)
[2023-12-13] MEDS ORDERED: CloNIDine HCL 0.1 MG TABLET PO PRN (07:45)
[2023-12-13] MEDS ORDERED: DOCUSATE SODIUM 100 MG CAPSULE PO PRN (07:45)
[2023-12-13] MEDS ORDERED: ONDANSETRON HCL 4 MG TABLET PO PRN (07:45)
[2023-12-13] MEDS ORDERED: IBUPROFEN 400 MG TABLET PO PRN (07:45)
[2023-12-13] MEDS ORDERED: MAG HYDROX/ALUMINUM HYD/SIMETH ES 30 ML SUSPENSION UDCUP PO PRN (07:45)
[2023-12-13] MEDS: ARIPiprazole 10 MG TABLET PO SCH (09:00)
[2023-12-13] MEDS: BusPIRone HCL 10 MG TABLET PO SCH (09:00)
[2023-12-13] MEDS: MULTIVITAMINS WITH MINERALS, THERAPEUTIC TABLET PO SCH (09:27)
[2023-12-13] MEDS: LEVOFLOXACIN 500 MG TABLET PO SCH (09:28)
[2023-12-13] MEDS: FOLIC ACID 1 MG TABLET PO SCH (09:28)
[2023-12-13] MEDS: LORazepam 2 MG TABLET PO SCH (09:41)
[2023-12-13] MEDS: IBUPROFEN 600 MG TABLET PO PRN (14:07)
[2023-12-13] MEDS: MAGNESIUM HYDROXIDE SUSPENSION 30 ML UDCUP PO PRN (17:18)
[2023-12-13] MEDS: TraZODone HCL 50 MG TABLET PO SCH (21:00)
[2023-12-14 07:55] LABS: BASOPHILS % (AUTO) 0.4 % (0.0-2.0); EOSINOPHILS % (AUTO) 4.3 % (1.0-6.0); HEMATOCRIT 42.2 % (36-46); HEMOGLOBIN 14.2 g/dL (12.0-16.0); LYMPHOCYTES # (AUTO) 2.4 K/uL (1.0-4.8); LYMPHOCYTES % (AUTO) 32.2 % (22.0-44.0); MEAN CORPUSCULAR HEMOGLOBIN 32.4 pg (26.0-34.0); MEAN CORPUSCULAR HGB CONC 33.6 G/dL (31.0-37.0); MEAN CORPUSCULAR VOLUME 96 fL (80-100); MONOCYTES # (AUTO) 0.5 K/uL (0.1-1.0); MONOCYTES % (AUTO) 6.7 % (2.0-9.0); NEUTROPHILS # (AUTO) 4.3 K/uL (1.8-7.7); NEUTROPHILS % (AUTO) 56.4 % (40.0-70.0); PLATELET COUNT (AUTO) 167 K/uL (150-450); RED BLOOD CELL COUNT(AUTO) 4.38 MIL/uL (4.00-5.20); RED CELL DISTRIBUTION WIDTH 15.3 % (11.5-14.5); WHITE BLOOD COUNT (AUTO) 7.5 K/uL (4.5-11.0)
[2023-12-14 08:00] VITALS: BP 123/83; PULSE 100; RESP 19; TEMP 98; O2SAT 100
[2023-12-14 08:20] LABS: HEMOGLOBIN A1C 5.3 % (3.8-5.6)
[2023-12-14 08:32] LABS: ALANINE AMINOTRANSFERASE 20 U/L (12-78); ALBUMIN 3.2 g/dL (3.4-5.0); ALKALINE PHOSPHATASE 91 U/L (46-116); ANION GAP 7 mmol/L (8-16); ASPARTATE AMINOTRANSFERASE 19 U/L (15-37); BILIRUBIN,TOTAL 0.7 mg/dL (0.1-1.0); CALCIUM, TOTAL 9.1 mg/dL (8.8-10.5); CARBON DIOXIDE 28 mmol/L (22-29); CHLORIDE 102 mmol/L (98-107); CREATININE 0.88 mg/dL (0.60-1.30); GLOMERULAR FILTR. RATE CALC > 60 mL/min (>60); GLUCOSE,RANDOM 116 mg/dL (70-110); POTASSIUM 4.3 mmol/L (3.5-5.1); SODIUM SERUM 137 mmol/L (136-145); THYROID STIMULATING HORMONE 1.17 uIU/mL (0.36-3.74); TOTAL PROTEIN, SERUM 7.4 g/dL (6.4-8.2); UREA NITROGEN, BLOOD 10 mg/dL (7-18)
[2023-12-14 08:42] VITALS: BP 123/83; PULSE 100; RESP 0; TEMP 98
[2023-12-14 09:26] VITALS: BP 123/83; PULSE 100; RESP 19; TEMP 98
[2023-12-14 09:41] LABS: HDL CHOLESTEROL 8 mg/dL (40-60)
[2023-12-14 09:42] VITALS: BP 111/82; PULSE 81; RESP 18; TEMP 98.1
[2023-12-14 10:00] LABS: CHOL/HDL RATIO 21.1 (3.9-5.7); CHOLESTEROL 169 mg/dL (131-200); LDL CHOL (CALC.) 134 mg/dL (0-130); TRIGLYCERIDES 135 mg/dL (15-150)
[2023-12-14] MEDS ORDERED: LEVO-72 PO (13:39)
[2023-12-15] MEDS ORDERED: LORazepam 1 MG TABLET PO PRN (07:00)
[2023-12-15] MEDS ORDERED: LORazepam 1 MG TABLET PO SCH (09:00)
[2023-12-16] MEDS ORDERED: LORazepam 1 MG TABLET PO PRN (07:00)
== END 2023-12-14 17:46 | disposition home or self-care (01) | DRG 750 ==
LOC: EMS 15:06 → 3EI 12-12 13:22
PROVIDERS: ADMIT Psychiatry & Neurology Psychiatry; ATTEND Psychiatry & Neurology Psychiatry
DX: F25.0 Schizoaffective disorder, bipolar type (principal); R45.851 Suicidal ideations; K70.30 Alcoholic cirrhosis of liver without ascites; F41.9 Anxiety disorder, unspecified; J45.909 Unspecified asthma, uncomplicated; Z20.822 Contact with and (suspected) exposure to COVID-19; F10.239 Alcohol dependence with withdrawal, unspecified; Y90.8 Blood alcohol level of 240 mg/100 ml or more; F15.10 Other stimulant abuse, uncomplicated; G47.00 Insomnia, unspecified; E87.6 Hypokalemia; M81.0 Age-related osteoporosis without current pathological fracture; F43.12 Post-traumatic stress disorder, chronic; Z88.0 Allergy status to penicillin; Z79.899 Other long term (current) drug therapy; Z88.1 Allergy status to other antibiotic agents; Z98.51 Tubal ligation status; Z87.891 Personal history of nicotine dependence; Z91.410 Personal history of adult physical and sexual abuse; Z91.51 Personal history of suicidal behavior
CPT/HCPCS: 80048; 80053; 80061; 80307; 81001; 83036; 84443; 84484; 85025; 87086; 87186; 93005; 99285; G0480; J3420; J3535

== ENCOUNTER → 2024-04-29 | Emergency (ER) | payer MEDICAID, OTHER ==
[~2024-04-29] VITALS: Ht 162.6 cm; Wt 84.1 kg
[~2024-04-29] MED LIST changes: -ARIP10TA38 PO; -CALC-1275 PO; -CETI-450 PO
[2024-04-29 16:40] VITALS: TEMP 98.6
[2024-04-29 20:00] VITALS: BP 128/77; PULSE 80; RESP 17; O2SAT 98
[2024-04-29] MEDS: TraMADol HCL 50 MG TABLET PO ONE (20:33)
== END | disposition home or self-care (01) ==
LOC: EMS 16:24
DX: R07.81 Pleurodynia (principal); J45.909 Unspecified asthma, uncomplicated; F31.9 Bipolar disorder, unspecified; F25.9 Schizoaffective disorder, unspecified; Z88.0 Allergy status to penicillin; Z98.51 Tubal ligation status
CPT/HCPCS: 71100; 99283

== ENCOUNTER 2025-01-21 19:37 | Emergency (ER) | payer MEDICAID, OTHER ==
[~2025-01-21] VITALS: Ht 162.6 cm; Wt 77.3 kg
[~2025-01-21 19:37] MED LIST changes: +ARIP15TA27 PO; -BUSP10TA23 PO; -TRAZ-252 PO; +TRAZ-283 PO
[2025-01-21 19:46] VITALS: TEMP 97.7
[2025-01-22 04:00] VITALS: BP 121/66; PULSE 72; RESP 15; O2SAT 97
== END 2025-01-22 05:16 | disposition home or self-care (01) ==
LOC: EMS 19:37
DX: F10.129 Alcohol abuse with intoxication, unspecified (principal); F25.9 Schizoaffective disorder, unspecified; F31.9 Bipolar disorder, unspecified; J45.909 Unspecified asthma, uncomplicated; F17.210 Nicotine dependence, cigarettes, uncomplicated; F15.90 Other stimulant use, unspecified, uncomplicated; Z88.0 Allergy status to penicillin; Z98.51 Tubal ligation status; Z79.899 Other long term (current) drug therapy; Y90.9 Presence of alcohol in blood, level not specified
CPT/HCPCS: 99283; Z7502

== ENCOUNTER 2025-04-11 15:44 | Inpatient (IN) | payer MEDICAID, OTHER ==
[~2025-04-11] VITALS: Ht 162.6 cm; Wt 76.4 kg
[~2025-04-11 15:44] MED LIST changes: +LEVO250T75 PO
[2025-04-11 16:21] LABS: COVID AG,FIA SOURCE NASAL SWAB
[2025-04-11 16:22] LABS: RED BLOOD CELL COUNT(AUTO) 4.18 MIL/uL (4.00-5.20); RED CELL DISTRIBUTION WIDTH 14.6 % (11.5-14.5); WHITE BLOOD COUNT (AUTO) 3.8 K/uL (4.5-11.0)
[2025-04-11 16:29] LABS: PLATELET COUNT (AUTO) 94 K/uL (150-450)
[2025-04-11 16:37] LABS: CALCIUM, TOTAL 8.2 mg/dL (8.8-10.5); CREATININE 0.64 mg/dL (0.60-1.30); GLOMERULAR FILTR. RATE CALC > 60 mL/min (>60); GLUCOSE,RANDOM 93 mg/dL (70-110); SODIUM SERUM 141 mmol/L (136-145); UREA NITROGEN, BLOOD 5 mg/dL (7-18)
[2025-04-11 16:42] LABS: ASPARTATE AMINOTRANSFERASE 114.0 U/L (15-37); TOTAL PROTEIN, SERUM 7.2 g/dL (6.4-8.2)
[2025-04-11 16:49] LABS: ALCOHOL, BLOOD (SERUM) 304.0 mg/dL (0-10)
[2025-04-11 16:50] LABS: SARS-COV2 (COVID) ANTIGEN,FIA Negative (Negative)
[2025-04-11 17:02] LABS: RBC MORPHOLOGY COMMENT ABNORMAL RBC MORPH
[2025-04-11] MEDS: POTASSIUM CHLORIDE 20 MEQ ER TABLET PO ONE (17:17)
[2025-04-12] VITALS (12 sets, daily range): BP systolic 103–148; BP diastolic 81–90; PULSE 74–96; RESP 16–18; TEMP 97–98.1; O2SAT 97–99
[2025-04-12] MEDS: ZOLPIDEM TARTRATE 10 MG TABLET PO PRN (01:15)
[2025-04-12] MEDS ORDERED: INFLUENZA VIRUS VACCINE TVS (6MO+) 2025-26/PF 45 MCG/0.5 ML SYRINGE IM. ONE (04:30)
[2025-04-12] MEDS ORDERED: MAG HYDROX/ALUMINUM HYD/SIMETH ES 30 ML SUSPENSION UDCUP PO PRN (05:45)
[2025-04-12] MEDS ORDERED: GuaiFENesin/D-METHORPHAN [SUGAR-FREE] 200-20MG/10 ML SYRUP UDCUP PO PRN (05:45)
[2025-04-12] MEDS ORDERED: NICOTINE 14 MG/24 HOUR PATCH TD PRN (05:45)
[2025-04-12] MEDS ORDERED: DOCUSATE SODIUM 100 MG CAPSULE PO PRN (05:45)
[2025-04-12] MEDS ORDERED: LOPERAMIDE HCL 2 MG CAPSULE PO PRN (05:45)
[2025-04-12] MEDS ORDERED: PETROLATUM,WHITE 28 GM JELLY TP PRN (05:45)
[2025-04-12] MEDS ORDERED: ALBUTEROL SULFATE HFA 90 MCG/PUFF 8 GM INHALER IH PRN (05:45)
[2025-04-12] MEDS ORDERED: ONDANSETRON 4 MG TABLET PO PRN (05:45)
[2025-04-12 09:13] LABS: PLATELET COUNT (AUTO) 86 K/uL (150-450); RED BLOOD CELL COUNT(AUTO) 4.11 MIL/uL (4.00-5.20); RED CELL DISTRIBUTION WIDTH 14.4 % (11.5-14.5); WHITE BLOOD COUNT (AUTO) 3.0 K/uL (4.5-11.0)
[2025-04-12 09:34] LABS: ASPARTATE AMINOTRANSFERASE 90 U/L (15-37); CALCIUM, TOTAL 8.3 mg/dL (8.8-10.5); CHOL/HDL RATIO 2.4 (3.9-5.7); CREATININE 0.59 mg/dL (0.60-1.30); GLOMERULAR FILTR. RATE CALC > 60 mL/min (>60); GLUCOSE,RANDOM 106 mg/dL (70-110); LDL CHOL (CALC.) 92 mg/dL (0-130); SODIUM SERUM 137 mmol/L (136-145); TOTAL PROTEIN, SERUM 7.1 g/dL (6.4-8.2); UREA NITROGEN, BLOOD 6 mg/dL (7-18)
[2025-04-12 09:42] LABS: RBC MORPHOLOGY COMMENT ABNORMAL RBC MORPH
[2025-04-12] MEDS: TraZODone HCL 150 MG TABLET PO SCH (20:34)
[2025-04-13] VITALS (10 sets, daily range): BP systolic 94–148; BP diastolic 73–90; PULSE 63–93; RESP 16–22; TEMP 97.5–98.6; O2SAT 95–98
[2025-04-13] MEDS: ACETAMINOPHEN 325 MG TABLET PO PRN (03:31)
[2025-04-13] MEDS: IBUPROFEN 400 MG TABLET PO PRN (12:37)
[2025-04-13] MEDS: ETHYL ALCOHOL 62% ANTISEPTIC NASAL SANITIZER 0.6 ML AMPUL NASAL SCH (12:38)
[2025-04-13] MEDS: CHLORHEXIDINE GLUCONATE 2% TOWELETTE [2'S/6'S] TP SCH (20:45)
[2025-04-14 08:24] VITALS: BP 110/78; PULSE 69; RESP 18; TEMP 97.8; O2SAT 100
[2025-04-14 09:08] LABS: APPEARANCE,URINE CLEAR (CLEAR); GLUCOSE, URINE (UA) NEGATIVE (NEGATIVE); LEUKOCYTE ESTERASE ,URINE LARGE (NEGATIVE); NITRATE,URINE NEGATIVE (NEGATIVE); OCCULT BLOOD,URINE NEGATIVE (NEGATIVE); PH,URINE DRUG SCREEN 8.0 (5.0-8.0); SPECIFIC GRAVITIY, URINE 1.010 (1.003-1.030)
[2025-04-14 09:17] LABS: ALCOHOL, URINE DRUG SCREEN NEGATIVE (NEGATIVE); AMPHET/METH SCREEN,URINE NEGATIVE (NEGATIVE); BARBITURATE SCREEN, URINE NEGATIVE (NEGATIVE); CANNABINOID SCREEN,URINE NEGATIVE (NEGATIVE); COCAINE SCREEN,URINE NEGATIVE (NEGATIVE); METHADONE SCREEN, URINE NEGATIVE (NEGATIVE)
[2025-04-14 09:25] LABS: CHOL/HDL RATIO 2.8 (3.9-5.7); LDL CHOL (CALC.) 87.0 mg/dL (0-130)
[2025-04-14 09:47] LABS: SQUAMOUS EPITHELIAL CELL,UR Moderate /LPF (None Seen)
[2025-04-14 21:01] VITALS: BP 118/73; PULSE 87; RESP 18; TEMP 98; O2SAT 98
[2025-04-14 21:03] VITALS: BP 118/73; PULSE 87; RESP 18; TEMP 98; O2SAT 98
[2025-04-15 10:36] VITALS: BP 108/73; RESP 18; O2SAT 97
[2025-04-15 10:38] VITALS: BP 108/73; PULSE 106; RESP 18; O2SAT 97
[2025-04-15 21:07] VITALS: BP 112/67; PULSE 92; RESP 18; TEMP 98; O2SAT 96
[2025-04-15 23:50] VITALS: BP 112/67; PULSE 92; RESP 18; TEMP 98; O2SAT 96
[2025-04-16 09:13] VITALS: BP 105/71; PULSE 87; RESP 16; TEMP 97.7; O2SAT 98
[2025-04-16 20:52] VITALS: BP 98/63; PULSE 69; RESP 18; TEMP 97.7; O2SAT 97
[2025-04-17] VITALS (9 sets, daily range): BP systolic 70–108; BP diastolic 47–61; PULSE 64–92; RESP 17–18; TEMP 97.5–98.9; O2SAT 97–100
[2025-04-18 15:33] VITALS: BP 76/56; PULSE 93; RESP 18; TEMP 97.6; O2SAT 100
[2025-04-18] MEDS: LURASIDONE HCL 40 MG TABLET PO SCH (18:54)
[2025-04-18 20:58] VITALS: BP 127/100; PULSE 67; RESP 18; TEMP 97.5; O2SAT 98
[2025-04-18 21:03] VITALS: BP 127/100; PULSE 67; RESP 18; TEMP 97.3; O2SAT 0; O2SAT 100
[2025-04-19] MEDS ORDERED: LURASIDONE HCL 40 MG TABLET PO SCH (07:30)
[2025-04-19 07:31] VITALS: BP 97/80; PULSE 82; RESP 18; TEMP 97.5; O2SAT 98
[2025-04-19 09:59] VITALS: BP 97/71; PULSE 83; RESP 19; TEMP 97.7; O2SAT 97
[2025-04-19 10:02] VITALS: BP 97/71; PULSE 83; RESP 18; TEMP 97.7; O2SAT 97
[2025-04-19 19:58] VITALS: BP 102/57; PULSE 75; RESP 18; TEMP 97.9
[2025-04-19 22:36] VITALS: BP 102/57; PULSE 75; RESP 18; TEMP 97.9; O2SAT 98
[2025-04-20 08:45] VITALS: BP 91/61; PULSE 63; RESP 17; TEMP 98.3; O2SAT 97
[2025-04-20 21:36] VITALS: BP 90/64; PULSE 70; RESP 18; TEMP 98.2; O2SAT 98
[2025-04-21 15:28] VITALS: RESP 18; TEMP 97.8
[2025-04-21 20:20] VITALS: BP 80/56; PULSE 72; RESP 18; TEMP 98.1; O2SAT 98
[2025-04-22] MEDS: MAGNESIUM HYDROXIDE SUSPENSION 30 ML UDCUP PO PRN (08:34)
[2025-04-22 11:09] VITALS: BP 90/67; PULSE 66; RESP 17; TEMP 97.3; O2SAT 97
[2025-04-22 16:53] VITALS: BP 100/69; PULSE 69; RESP 18
[2025-04-23 09:40] VITALS: BP 93/69; PULSE 62; RESP 17; TEMP 97.9
[2025-04-24] MEDS ORDERED: BUSP10TA23 PO (13:20)
[2025-04-24] MEDS ORDERED: TRAZ-252 PO (13:21)
[2025-04-24] MEDS ORDERED: LURA40TA2 PO (13:21)
[2025-04-24 14:25] VITALS: BP 100/71; PULSE 83; RESP 17; TEMP 97.5; O2SAT 98
== END 2025-04-24 15:00 | disposition home or self-care (01) | DRG 761 ==
LOC: EMS 16:02 → EDH 20:17 → UNDOADMIN 20:17 → B3A 04-12 01:07 → 3EI 04-13 13:57
PROVIDERS: ADMIT Psychiatry & Neurology Child & Adolescent Psychiatry; ATTEND Psychiatry & Neurology Child & Adolescent Psychiatry
PROC: GZHZZZZ Group Psychotherapy (ICD-10-PCS; principal; 2025-04-12)
PROC: GZ58ZZZ Individual Psychotherapy, Cognitive-Behavioral (ICD-10-PCS; 2025-04-12)
PROC: GZ56ZZZ Individual Psychotherapy, Supportive (ICD-10-PCS; 2025-04-12)
DX: F25.1 Schizoaffective disorder, depressive type (principal); D69.6 Thrombocytopenia, unspecified; N39.0 Urinary tract infection, site not specified; J45.909 Unspecified asthma, uncomplicated; E66.9 Obesity, unspecified; F10.20 Alcohol dependence, uncomplicated; Z20.822 Contact with and (suspected) exposure to COVID-19; Z88.0 Allergy status to penicillin; G47.00 Insomnia, unspecified; Z68.28 Body mass index [BMI] 28.0-28.9, adult; Z87.440 Personal history of urinary (tract) infections; Z91.148 Patient's other noncompliance with medication regimen for other reason
CPT/HCPCS: 16030; 80048; 80053; 80061; 80076; 80307; 81001; 83036; 84436; 84439; 84443; 85025; 87081; 87086; 97116; 97162; 97530; G0378; G0480